=== PATIENT | female | born 1940 | race Caucasian/White ===

== ENCOUNTER → 2017-04-13 | Outpatient (CLI) | payer MEDICARE, OTHER ==
[~2017-04-13] MED LIST: ASPI-1471 PO; CALC500T76 PO; CHEMO; CHOL200021 PO; CHOL400C10 PO; EST42T PV; HCTZ PO; HCTZ25 PO; IBU800 PO; LEV500 PO; MULT1CAP41 PO; PER PO
--- NOTE | 2017-04-13 10:27 | RADIOLOGY IMAGING REPORT ---
[place] [facility] [place] MALICK TORRES : [id number] MR: [id number] V: [id number] EXAM DATE: [id number] ORDERING PHYSICIAN: CHRISTIANA GIRARD TECHNOLOGIST: Argenis Chavez PROCEDURE:BILATERAL DIGITAL SCREENING MAMMOGRAM WITH CAD ASSISTED INTERPRETATION & 3D TOMOSYNTHESIS COMPARISON:Prior mammograms 03/16/16, 03/15/15, 03/12/14, 03/07/13, 02/28/13, 02/28/12 INDICATIONS:SCREENING FINDINGS: Moderately heterogeneous fibroglandular tissue is seen throughout the breasts. The parenchymal pattern has remained stable allowing for difference in mammographic technique & patient positioning. There is no evidence of malignant appearing mass, malignant appearing calcifications or other secondary sign of malignancy in either breast. DIAGNOSTIC CATEGORY 1--NEGATIVE. RECOMMENDATIONS: ROUTINE MAMMOGRAM AND CLINICAL EVALUATION. IMPRESSION: BIRADS 1: Negative No significant abnormality is seen Dictated by: Krissy Coelho M.D. on 04/13/2017 at 9:04 Transcribed by: GIDEON on 04/13/2017 at 10:19 Approved by: Krissy Coelho M.D. on 04/13/2017 at 10:26 [facility]
== END ==
LOC: MAMO 03-19 01:55
PROVIDERS: ATTEND Family Medicine
DX: Z12.31 Encounter for screening mammogram for malignant neoplasm of breast (principal)
CPT/HCPCS: 77063; 77067

== ENCOUNTER → 2017-11-27 | Outpatient (CLI) | payer MEDICARE, OTHER ==
[~2017-11-27] MED LIST changes: +HYDR-2966 PO; +NITR-1 PO
== END ==
LOC: LAB 16:40
PROVIDERS: ATTEND Family Medicine
DX: R30.0 Dysuria (principal)
CPT/HCPCS: 81001; 87088

== ENCOUNTER → 2018-01-01 | Outpatient (CLI) | payer MEDICARE, OTHER | LOC: LAB 14:28 | PROVIDERS: ATTEND Family Medicine | DX: C56.9 Malignant neoplasm of unspecified ovary (principal); I10 Essential (primary) hypertension | CPT/HCPCS: 36415; 82040; 82247; 82310; 82374; 82435; 82565; 82947; 84075; 84132; 84155; 84295; 84450; 84460; 84520; 86304 ==

== ENCOUNTER → 2018-04-16 | Outpatient (CLI) | payer MEDICARE, OTHER | LOC: LAB 11:26 | PROVIDERS: ATTEND Family Medicine | DX: R79.89 Other specified abnormal findings of blood chemistry (principal) | CPT/HCPCS: 36415; 82040; 82247; 82310; 82374; 82435; 82565; 82947; 84075; 84132; 84155; 84295; 84450; 84460; 84520 ==

== ENCOUNTER → 2018-04-30 | Outpatient (CLI) | payer MEDICARE, OTHER ==
--- NOTE | 2018-05-01 08:40 | RADIOLOGY IMAGING REPORT ---
FACILITY: [facility] PATIENT NAME: MALICK TORRES : [id number] MR: [id number] V: [id number] EXAM DATE: [id number] ORDERING PHYSICIAN: CHRISTIANA GIRARD TECHNOLOGIST: Naya Young PROCEDURE:BILATERAL DIGITAL SCREENING MAMMOGRAM WITH CAD ASSISTED INTERPRETATION & 3D TOMOSYNTHESIS COMPARISON:Prior mammograms 04/13/17, 03/16/16, 03/15/15, 03/12/14, 03/07/13, 02/28/13. INDICATIONS:SCREENING FINDINGS: There are scattered areas of fibroglandular density throughout the breasts. The parenchymal pattern has remained stable allowing for difference in mammographic technique & patient positioning. DIAGNOSTIC CATEGORY 1--NEGATIVE. RECOMMENDATIONS: ROUTINE MAMMOGRAM AND CLINICAL EVALUATION. IMPRESSION: BIRADS 1: Negative. No significant abnormality is seen. Dictated by: Kirssy Coelho M.D. on 04/30/2018 at 15:45 Transcribed by: GIDEON on 04/30/2018 at 15:50 Approved by: Krissy Coelho M.D. on 05/01/2018 at 8:39 [facility]
== END ==
LOC: MAMO 04-25 14:56
PROVIDERS: ATTEND Family Medicine
DX: Z12.31 Encounter for screening mammogram for malignant neoplasm of breast (principal)
CPT/HCPCS: 77063; 77067